=== PATIENT | male | born 1970 | race Caucasian/White ===

== ENCOUNTER 2018-05-04 09:39 | Day surgery (SDC) | payer BC ==
[~2018-05-04] VITALS: Ht 170.2 cm; Wt 97.0 kg
[~2018-05-04 09:39] MED LIST: ACET500 PO; AMLO5 PO; Aspirin EC325 MG PO; CLON.3 PO; Dyazide 37.5-21 EACH PO; FAMO20 PO; METO100ER PO; OMEP20ER PO; TRAM50 PO
[2018-05-04] MEDS ORDERED: CLOP75 PO (12:23)
== END 2018-05-04 18:00 | disposition home or self-care (01) ==
LOC: MHTC 09:39
DX: I25.118 Atherosclerotic heart disease of native coronary artery with other forms of angina pectoris (principal); E66.9 Obesity, unspecified; Z87.891 Personal history of nicotine dependence; E78.5 Hyperlipidemia, unspecified; I10 Essential (primary) hypertension; I77.1 Stricture of artery; Z79.899 Other long term (current) drug therapy; Z88.8 Allergy status to other drugs, medicaments and biological substances; Z79.82 Long term (current) use of aspirin; E78.00 Pure hypercholesterolemia, unspecified; K21.9 Gastro-esophageal reflux disease without esophagitis; Z82.49 Family history of ischemic heart disease and other diseases of the circulatory system; Z68.33 Body mass index [BMI] 33.0-33.9, adult
CPT/HCPCS: 85347; 92978; 93005; 93010; 93454; 99152; 99153; C1725; C1753; C1769; C1874; C1894; C9600; J1644; J2250; J3010; J7030; Q9967